=== PATIENT | female | born 1975 | race American Indian/Alaskan Native ===

== ENCOUNTER 2016-10-27 11:50 | Emergency (ER) | payer OTHER ==
[2016-10-27 11:50] VITALS: BMI 18.8
[2016-10-27] MEDS ORDERED: Sodium Chloride 0.9% 1,000 ML IV ONE (13:43)
[2016-10-27] MEDS ORDERED: DiphenhydrAMINE 50 mg/ml Inj IVP STA (13:44)
[2016-10-27] MEDS ORDERED: DiphenhydrAMINE 50 mg/ml Inj ONE (14:03)
[2016-10-27] MEDS ORDERED: Sodium Chloride 0.9% 1,000 ML ONE (14:03)
[2016-10-27 14:08] LABS: BASO # 0.1 K/uL (0.0-0.2); BASO % 0.9 % (0.0-2.0); EOS % 0.5 % (0.0-4.0); LYMPH # 2.9 K/uL (1.0-4.3); MEAN CELL VOLUME 94.3 fL (81.0-99.0); MEAN CORPUSCULAR HEMOGLOBIN 31.7 pg (27.0-31.0); MEAN CORPUSCULAR HGB CONC 33.6 g/dL (33.0-37.0); MEAN PLATELET VOLUME 7.5 fL (7.2-11.7); MONO # 0.4 K/uL (0.0-0.8); MONO % 5.7 % (0.0-10.0); NRBC % 0.1 % (0.0-2.0); RED CELL DISTRIBUTION WIDTH 13.5 % (11.5-14.5)
[2016-10-27 14:13] LABS: RBC URINE < 1 /hpf (0-3); URINE BILIRUBIN NEGATIVE (NEGATIVE); URINE BLOOD NEGATIVE (NEGATIVE); URINE COLOR Yellow (YELLOW); URINE GLUCOSE (UA) NORMAL (Normal); URINE KETONE NEGATIVE (NEGATIVE); URINE LEUKOCYTE ESTERASE NEG Leu/uL (Negative); URINE PROTEIN NEGATIVE (NEGATIVE); URINE UROBILINOGEN NORMAL mg/dL (0.2-1.0); WBC URINE < 1 /hpf (0-5)
--- NOTE | 2016-10-27 14:36 | CT ---
PROCEDURE: CT HEAD WITHOUT CONTRAST. HISTORY: headache, dizziness COMPARISON: Noncontrast head CT performed 07/29/16 TECHNIQUE: Axial computed tomography images were obtained through the head/brain without intravenous contrast. Radiation dose: Total exam DLP = 785.42 mGy-cm. This CT exam was performed using one or more of the following dose reduction techniques: Automated exposure control, adjustment of the mA and/or kV according to patient size, and/or use of iterative reconstruction technique. FINDINGS: Streak artifact emanating from earring in the patient's left ear. HEMORRHAGE: No intracranial hemorrhage. BRAIN: No mass effect or edema. No atrophy or chronic microvascular ischemic changes.Please note that MRI with diffusion imaging is more sensitive in the detection of acute ischemic event. VENTRICLES: No hydrocephalus. CALVARIUM: Unremarkable. PARANASAL SINUSES: No significant inflammatory changes. MASTOID AIR CELLS: No inflammatory changes. OTHER FINDINGS: None. IMPRESSION: No acute intracranial pathology identified.
--- NOTE | 2016-10-27 14:54 | RAD ---
HISTORY: dizziness COMPARISON: Chest x-ray performed 07/25/15 TECHNIQUE: Chest, one view. FINDINGS: LUNGS: No focal consolidation. Please note that chest x-ray has limited sensitivity for the detection of pulmonary masses. PLEURA: No significant pleural effusion identified. No definite pneumothorax . CARDIOVASCULAR: The cardiomediastinal silhouette appears within normal limits of size. OSSEOUS STRUCTURES: No acute osseous abnormality identified. VISUALIZED UPPER ABDOMEN: Unremarkable. OTHER FINDINGS: None. IMPRESSION: No focal consolidation, significant pleural effusion, or definite pneumothorax identified.
[2016-10-27 15:11] LABS: CHLORIDE 101 mmol/L (98-107)
[2016-10-27 15:12] LABS: POTASSIUM 3.6 mmol/L (3.6-5.2); SODIUM 135 mmol/L (132-148)
[2016-10-27 15:14] LABS: ALB/GLOB RATIO 1.3 (1.0-2.1); AST/SGOT 31 U/L (14-36); BILIRUBIN,TOTAL 0.5 mg/dL (0.2-1.3); CARBON DIOXIDE 24 mmol/L (22-30); GFR AFRICAN-AMERICAN > 60; TOTAL PROTEIN 6.4 g/dL (6.3-8.3)
[2016-10-27 15:15] LABS: ALKALINE PHOSPHATASE 79 U/L (38-126); ALT/SGPT 26 U/L (9-52); BLOOD UREA NITROGEN 10 mg/dL (7-17); CALCIUM 8.7 mg/dl (8.6-10.4); GLUCOSE,RANDOM 85 mg/dL (65-105)
[2016-10-27 15:32] VITALS: RESP 16; TEMP 98.8
[2016-10-27 15:34] VITALS: O2SAT 98
--- NOTE | 2016-10-27 15:34 | C.PDOC ---
History Of Present Illness 40 y/o female with pmhx HTN, migraine headaches presents to the ED with complaints of dizziness and near-syncopal episode. Pt states while working today , she gradually developed a headache described as sharp, pressure sensation to the forehead which is different from her usual migraine headaches. Pt then felt dizzy, room spinning sensation and had a near syncopal episode afterward. Pt currently feeling lightheaded with nausea but without vertigo. Pt states she hasn't taken her blood pressure medication in 2 days due to insurance refusal to pay for [employer]. States that one of her co-workers checked her BP and it was 170/107. Pt denies chest pain, SOB, palpitations, vomiting, fever, ringing in the ears or recent illness. No history of GI bleed. Student Ministries Director Zaid Patino Time Seen by Provider: 10/27/16 11:54 Chief Complaint (Nursing): Headache History Per: Patient History/Exam Limitations: no limitations Onset/Duration Of Symptoms: Hrs Current Symptoms Are (Timing): Better Severity: Mild Preceeding Symptoms: None Associated Symptoms: Nausea. denies: Vomiting Recent travel outside of the [place]: No Past Medical History Reviewed: Historical Data, Nursing Documentation, Vital Signs Vital Signs: Last Vital Signs Temp 98.8 F 10/27/16 15:29 Pulse 87 10/27/16 15:29 Resp 16 10/27/16 15:29 BP 154/85 H 10/27/16 15:29 Pulse Ox 98 10/27/16 16:29 - Medical History PMH: HTN, Migraine - [facility] Procedures REMOV TUBE & ECTOP PREG (05/15/13) Family History: States: Unknown Family Hx - Social History Hx Tobacco Use: Yes (1 pack every 3 days) Hx Alcohol Use: Yes Hx Substance Use: No - Immunization History Hx Tetanus Toxoid Vaccination: Yes Hx Influenza Vaccination: Yes (05/2016) Hx Pneumococcal Vaccination: No Review Of Systems Except As Marked, All Systems Reviewed And Found Negative. Constitutional: Negative for: Fever, Chills Cardiovascular: Positive for: Light Headedness. Negative for: Chest Pain, Palpitations Respiratory: Negative for: Shortness of Breath Gastrointestinal: Positive for: Nausea. Negative for: Vomiting Neurological: Positive for: Headache Physical Exam - Physical Exam Appears: Non-toxic, In Acute Distress (mild) Skin: Warm, Dry, No Rash Head: Atraumatic, Normacephalic Eye(s): bilateral: Normal Inspection (no nystagmus), PERRL, EOMI Ear(s): Bilateral: Normal Throat: Normal Neck: Normal, Normal ROM, No Midline Cervical Tenderness, No Paracervical Tenderness, Supple Chest: Symmetrical, No Tenderness Cardiovascular: Rhythm Regular, No Murmur Respiratory: Normal Breath Sounds, No Decreased Breath Sounds, No Accessory Muscle Use, No Rales, No Rhonchi, No Wheezing Gastrointestinal/Abdominal: Normal Exam, Soft, No Tenderness, No Guarding, No Rebound Back: Normal Inspection, No CVA Tenderness, No Vertebral Tenderness Extremity: Normal ROM, No Tenderness, No Pedal Edema, No Calf Tenderness, Capillary Refill, No Deformity, No Swelling Extremity: Bilateral: Atraumatic Neurological/Psych: Oriented x3, Normal Speech, Normal Cognition, Normal Cranial Nerves, Normal Motor, Normal Sensation, Normal Reflexes Disoriented To: Person, Place, Time, Situation Gait: Unable To Assess ED Course And Treatment - Laboratory Results Result Diagrams: 10/27/16 14:05 10/27/16 15:01 Lab Interpretation: Normal O2 Sat by Pulse Oximetry: 98 (room air) Pulse Ox Interpretation: Normal - CT Scan/US CT head w/o contrast Other Rad Studies (CT/US): Interpreted By Me CT/US Interpretation: FINDINGS: Streak artifact emanating from earring in the patient's left ear. HEMORRHAGE: No intracranial hemorrhage. BRAIN: No mass effect or edema. No atrophy or chronic microvascular ischemic changes.Please note that MRI with diffusion imaging is more sensitive in the detection of acute ischemic event. VENTRICLES: No hydrocephalus. CALVARIUM: Unremarkable. PARANASAL SINUSES: No significant inflammatory changes. MASTOID AIR CELLS: No inflammatory changes. OTHER FINDINGS: None. IMPRESSION : No acute intracranial pathology identified. Medical Decision Making Medical Decision Makin40 y/o female with pmhx HTN and migraine headaches, presents to the ED with complaints of dizziness, headache, nausea and near-syncopal episode, she adds that she has not taken her bp medication in 2 days. At the bedside pt's VS are BP 153/87 P 95 O2 100%RA. Plan: - CT head w/o contrast - EKG - CXR - Labs - IVF - UA - FS - Uhcg - reglan IV / benadryl IV / tylenol PO FS 77 Uhcg (-) EKG : NSR at 87 bpm, normal axis, no acute St changes, as read by TYREE. CXR: NAD, as read by PA. Pt went to CT without any incident. CT head results reviewed and are wnl, with no acute findings. On re-evaluation, pt resting comfortably, not in any apparent distress. Pt observed ambulatory in ED with a normal gait with no assistance. She reports significant improvement of her symptoms. Denies any headache, dizziness, CP, SOB , palpitations or nausea. Repeat exam : VS : BP 154/85 P 87 O2 99%RA Neck: Supple ENT: no acute findings Lungs: CTA B/L, BS equal B/L. CVS: (+)S1S2, reg. Abd: benign, (-) guarding, (-) rebound. Back: (-) CVA Tenderness. 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 Gait steady. Lab and all diagnostic results d/w the pt in great detail. She is tolerating a sandwich and po fluids at this time. Given a dose of her bystolic 5 mg po. Pt states that she will f/u with her [employer] system administrator tomorrow and obtain a new Rx for her HTN, likely a substitute for the bystolic as the insurance refuses to pay for her medication. Pt encouraged to see her pmd or cardioloist tomorrow without fail and to return to the ER at any time for any new or worsening symptoms. Pt understand and agrees with instructions, diagnosis and further plan of care. Disposition - Disposition Disposition: HOME/ ROUTINE Disposition Time: 16:00 Condition: IMPROVED Additional Instructions: Follow up with your pmd or your [employer] system administrator tomorrow for re-evaluation and follow up. Return to the ER at any time for any new or worsening symptoms. Pt understand and agrees with instructions, diagnosis and further plan of care. Instructions: Acute Headache (ED), Dizziness (ED) Forms: Work Excuse Print Language: CITIZEN OF [place] - Clinical Impression Clinical Impression: Headache, Dizziness - PA / NETBACKUP ENGINEER / Resident Statement MD/DO has reviewed & agrees with the documentation as recorded. - Scribe Statement The provider has reviewed the documentation as recorded by the Sheryl Aragon All medical record entries made by the Matthewibradha were at my direction and personally dictated by me. I have reviewed the chart and agree that the record accurately reflects my personal performance of the history, physical exam, medical decision making, and the department course for this patient. I have also personally directed, reviewed, and agree with the discharge instructions and disposition.
[2016-10-27 16:51] VITALS: BP 128/74; PULSE 82
--- NOTE | 2016-10-30 12:51 | CARD ---
APPROVED REPORT EKG Measurement Heart [id number] <Conclusion> Normal sinus rhythm Normal ECG
== END 2016-10-27 16:51 | disposition home or self-care (01) ==
LOC: C.ER 11:50
DX: R42 Dizziness and giddiness (principal); R51 Headache
CPT/HCPCS: 36415; 70450; 71010; 80053; 81001; 82948; 84484; 85025; 96361; 96374; 96375; 99285; J1200; J2765; J7040

== ENCOUNTER 2017-04-20 12:53 | Emergency (ER) | payer OTHER ==
[2017-04-20 12:53] VITALS: BMI 18.8
[2017-04-20 13:14] VITALS: RESP 18; TEMP 98.7; O2SAT 100
[2017-04-20] MEDS ORDERED: Promethazine/Cod 6.25mg-10mg/5ml Syr UD PO STA (13:45)
[2017-04-20] MEDS ORDERED: Albuterol 0.083% Inhal Sol (2.5 mg/3 mL) UD IH STA ×2 (13:45→14:13)
[2017-04-20] MEDS ORDERED: Albuterol 0.083% Inhal Sol (2.5 mg/3 mL) UD ONE ×2 (14:02→14:14)
--- NOTE | 2017-04-20 14:05 | C.PDOC ---
History Of Present Illness 41 yo female come in for evaluation of bodyaches, nasal congestion, runny nose , productive cough with yellow sputum gradually developed for past week. Pt sts , " was unable to sleep last night due to cough". Otherwise, pt denies high fever, chills, headache, dizziness, drooling, neck pain, CP, SOB, wheezing, palpitation, abd. pain, V/D, rash, denies recent travel or known sick contact. At the time of evaluation, pt is awake, comfortable, not in any apparent distress Time Seen by Provider: 04/20/17 13:17 Chief Complaint (Nursing): Cough, Cold, Congestion History Per: Patient Onset/Duration Of Symptoms: Gradual Past Medical History Reviewed: Historical Data, Nursing Documentation, Vital Signs Vital Signs: Last Vital Signs Temp 98.7 F 04/20/17 14:42 Pulse 86 04/20/17 14:42 Resp 18 04/20/17 14:42 BP 132/86 04/20/17 14:42 Pulse Ox 100 04/20/17 14:42 - Medical History PMH: HTN, Migraine - [facility] Procedures REMOV TUBE & ECTOP PREG (05/15/13) Family History: States: Unknown Family Hx - Social History Hx Tobacco Use: Yes (1 pack every 3 days) Hx Alcohol Use: Yes Hx Substance Use: No - Immunization History Hx Tetanus Toxoid Vaccination: Yes Hx Influenza Vaccination: Yes (05/2016) Hx Pneumococcal Vaccination: No Review Of Systems Except As Marked, All Systems Reviewed And Found Negative. Constitutional: Positive for: Malaise ENT: Positive for: Nose Discharge, Nose Congestion, Throat Pain. Negative for: Ear Discharge Cardiovascular: Negative for: Chest Pain Respiratory: Positive for: Cough, Sputum. Negative for: Shortness of Breath, Wheezing Gastrointestinal: Negative for: Nausea, Vomiting, Abdominal Pain, Diarrhea Skin: Negative for: Rash Neurological: Negative for: Weakness, Numbness, Altered Mental Status Physical Exam - Physical Exam Appears: Well, Non-toxic, No Acute Distress Skin: Normal Color, Warm, Dry, No Rash Head: Normacephalic Eye(s): bilateral: PERRL Ear(s): Bilateral: Normal Nose: No Flaring, Discharge (scant claer rhinorrhea B/L) Oral Mucosa: Moist, No Drooling Tongue: Normal Appearing Throat: Erythema (mild B/L), No Exudate, No Drooling Neck: Trachea Midline, Supple Cardiovascular: Rhythm Regular Respiratory: No Decreased Breath Sounds, No Accessory Muscle Use, No Stridor, No Wheezing Gastrointestinal/Abdominal: Soft, No Tenderness, No Distention, No Guarding, No Rebound Back: No CVA Tenderness Extremity: Normal ROM, No Deformity, No Swelling Neurological/Psych: Oriented x3, Normal Speech, Normal Motor, Normal Sensation, Normal Reflexes ED Course And Treatment O2 Sat by Pulse Oximetry: 100 Pulse Ox Interpretation: Normal - Radiology CXR: Interpreted by Me, Viewed By Me CXR Interpretation: Yes: No Acute Disease Progress Note: On re-eval, pt is afebrile, hemodynamicaly stable. Non-toxic. Tolerate Po well in ED. PuslEOx 100% RA. ENT: no acute findings. neck: SUpple , (-) meningeal sign. Lungs: CTA B/L, BS equal B/L. Abd: benign, (-) guarding , (-) rebound. Back: (-) CVA tenderness. CXR review and appears normal. Pt has clinical findings c/w viral illness/bronchitis. Pt and mom advised. ref. to F/u with Ped in 2-3 days for re-eavl. return if any new chanegs. Disposition Counseled Patient/Family Regarding: Studies Performed, Diagnosis, Need For Followup, Rx Given - Disposition Referrals: Lisa Verduzco MD [Staff Provider] - Disposition: HOME/ ROUTINE Disposition Time: 14:11 Condition: STABLE Additional Instructions: ENCOURAGE FLUIDS TAKE MEDICATION PRESCRIBED FOLLOW UP WITH PMD IN 2-3 DAYS FOR RE-EVALUATION. RETURN TO ED IF ANY WORSENING OR NEW CHANGES. Prescriptions: Albuterol HFA [Ventolin HFA 90 mcg/actuation (8 g)] 1 puff IH Q6 #1 inhaler Prednisone [Deltasone] 40 mg PO DAILY #6 tablet Promethazine/Codeine [Phenergan/Codeine Oral Syrup] 5 ml PO TID #90 ml Instructions: Upper Respiratory Infection (ED), Acute Bronchitis (ED) Forms: [facility] (Setswana), Work Excuse - Clinical Impression Clinical Impression: Upper respiratory infection, Bronchitis
--- NOTE | 2017-04-20 14:09 | RAD ---
HISTORY: COMPARISON: 10/27/2016. TECHNIQUE: Chest PA and lateral FINDINGS: LINES AND TUBES: None. LUNG AND PLEURA: There is mild pulmonary hyperinflation and peribronchial thickening with streaky opacities in the lungs. No focal consolidation. HEART AND MEDIASTINUM: The heart is not enlarged. The hilar and mediastinal contours are within normal limits. SKELETAL STRUCTURES: The bony structures are within normal limits for the patient's age. VISUALIZED UPPER ABDOMEN: Normal. OTHER FINDINGS: None. IMPRESSION: Findings are most compatible with reactive small airway disease/ viral bronchitis. No lobar pneumonia.
[2017-04-20] MEDS ORDERED: Promethazine/Cod 6.25mg-10mg/5ml Syr UD ONE (14:12)
[2017-04-20 14:42] VITALS: BP 132/86; PULSE 86
== END 2017-04-20 14:40 | disposition home or self-care (01) ==
LOC: C.ER 12:53
DX: J06.9 Acute upper respiratory infection, unspecified (principal); J40 Bronchitis, not specified as acute or chronic; I10 Essential (primary) hypertension; F17.210 Nicotine dependence, cigarettes, uncomplicated

== ENCOUNTER 2017-09-09 11:00 | Emergency (ER) | payer OTHER ==
[2017-09-09 11:01] VITALS: BMI 18.8
[2017-09-09 11:21] VITALS: BP 156/103; PULSE 82; RESP 20; TEMP 98.7; O2SAT 97
--- NOTE | 2017-09-09 12:18 | RAD ---
PROCEDURE: Radiographs of the Right Shoulder HISTORY: r/o separation COMPARISON: No prior. FINDINGS: BONES: Normal. No fracture. JOINTS: . Glenohumeral within normal limits. Acromioclavicular joint space degenerative narrowing consistent with mild osteoarthritis. SOFT TISSUES: Normal. OTHER FINDINGS: None. IMPRESSION: Mild right acromioclavicular joint early degenerative arthrosis. Otherwise negative
--- NOTE | 2017-09-09 14:27 | C.PDOC ---
History Of Present Illness 41 y/o female presents to the ED complaining of right shoulder and trapezius pain that began earlier today. States that she lifted garbage out of the can and noticed sudden onset of pain. Denies any numbness of the arm or focal weakness. No chest pain. Patient is right hand dominant. Time Seen by Provider: 09/09/17 11:32 Chief Complaint (Nursing): Upper Extremity Problem/Injury History Per: Patient History/Exam Limitations: no limitations Onset/Duration Of Symptoms: Hrs Current Symptoms Are (Timing): Still Present Past Medical History Reviewed: Historical Data, Nursing Documentation, Vital Signs Vital Signs: Last Vital Signs Temp 98.7 F 09/09/17 11:17 Pulse 82 09/09/17 11:17 Resp 20 09/09/17 11:17 BP 156/103 H 09/09/17 11:17 Pulse Ox 97 09/09/17 14:31 - Medical History PMH: HTN, Migraine - [facility] Procedures REMOV TUBE & ECTOP PREG (05/15/13) Family History: States: Unknown Family Hx - Social History Hx Tobacco Use: Yes (1 pack every 3 days) Hx Alcohol Use: Yes Hx Substance Use: No - Immunization History Hx Tetanus Toxoid Vaccination: Yes Hx Influenza Vaccination: Yes (05/2016) Hx Pneumococcal Vaccination: No Review Of Systems Cardiovascular: Negative for: Chest Pain Musculoskeletal: Positive for: Shoulder Pain (right), Back Pain (near right trapezius) Neurological: Negative for: Weakness, Numbness Physical Exam - Physical Exam Appears: Well, Non-toxic, No Acute Distress Skin: Normal Color, Warm Head: Atraumatic, Normacephalic Eye(s): bilateral: Normal Inspection, PERRL, EOMI Oral Mucosa: Moist Neck: Normal ROM, Supple Chest: Symmetrical Respiratory: No Accessory Muscle Use Back: No Vertebral Tenderness, Paraspinal Tenderness (to right trapezius) Extremity: Normal ROM (of right shoulder and arm), Capillary Refill (less than 2 sec), No Deformity, No Swelling Pulses: Left Radial: Normal, Right Radial: Normal Neurological/Psych: Oriented x3, Normal Speech, Normal Motor, Normal Sensation ED Course And Treatment O2 Sat by Pulse Oximetry: 97 (RA) Pulse Ox Interpretation: Normal - Other Rad Right shoulder X-Ray: Viewed By Me, Read By Radiologist Interpretation: FINDINGS: BONES: Normal. No fracture. JOINTS: . Glenohumeral within normal limits. Acromioclavicular joint space degenerative narrowing consistent with mild osteoarthritis. SOFT TISSUES: Normal. OTHER FINDINGS: None. IMPRESSION: Mild right acromioclavicular joint early degenerative arthrosis. Otherwise negative Medical Decision Making Medical Decision Making: Impression: Shoulder injury Plan: --X-ray right shoulder Informed patient of imaging results and diagnosis. Patient is stable for d/c home, provided rx for cyclobenzaprine. Advised to follow up with PMD for further evaluation. Disposition Counseled Patient/Family Regarding: Studies Performed, Diagnosis, Need For Followup, Rx Given - Disposition Referrals: Bespoke Suhas Kramer, [Non-Staff] - Disposition: HOME/ ROUTINE Disposition Time: 12:00 Condition: GOOD Additional Instructions: SAE DAVENPORT, thank you for letting us take care of you today. Your provider was Ruddy Smith DO and you were treated for RT SHOULDER PAIN. The emergency medical care you received today was directed at your acute symptoms. If you were prescribed any medication, please fill it and take as directed. It may take several days for your symptoms to resolve. Return to the Emergency Department if your symptoms worsen, do not improve, or if you have any other problems. Please contact your doctor or call one of the physicians/clinics you have been referred to that are listed on the Patient Visit Information form that is included in your discharge packet. Bring any paperwork you were given at discharge with you along with any medications you are taking to your follow up visit. Our treatment cannot replace ongoing medical care by a primary care provider outside of the emergency department. Thank you for allowing the [facility] team to be part of your care today. You can take the Flexeril with ibuprofen for added effect. Follow up with your primary care doctor in 2-3 days for re-evaluation and further management. Prescriptions: Cyclobenzaprine [Cyclobenzaprine HCl] 10 mg PO Q8 PRN #20 tab PRN Reason: Muscle Spasm Instructions: Upper Back Pain (DC) Forms: [employer] ([place]), Work Excuse - POA Present On Arrival: None - Clinical Impression Clinical Impression: Muscle strain - Scribe Statement The provider has reviewed the documentation as recorded by the Scribe (Rosanna Salas) Provider Attestation: All medical record entries made by the Scribe were at my direction and personally dictated by me. I have reviewed the chart and agree that the record accurately reflects my personal performance of the history, physical exam, medical decision making, and the department course for this patient. I have also personally directed, reviewed, and agree with the discharge instructions and disposition.
== END 2017-09-09 12:24 | disposition home or self-care (01) ==
LOC: C.ER 11:00
DX: S46.911A Strain of unspecified muscle, fascia and tendon at shoulder and upper arm level, right arm, initial encounter (principal); X50.9XXA Other and unspecified overexertion or strenuous movements or postures, initial encounter